=== PATIENT | female | born 1950 | race Caucasian/White ===

== ENCOUNTER 2025-03-02 10:50 | Emergency (ER) | payer MEDICARE, OTHER, SELFPAY ==
[2025-03-02 10:53] VITALS: BP 191/105
[2025-03-02 11:17] VITALS: BMI 47.0
[2025-03-02 11:36] LABS: % Basophils 0.8 % (0-2); % Eosinophils 1.5 % (0-6); % Immature Granulocytes 0.2 % (0-0.5); % Lymphocytes 21.8 % (20.5-51.1); % Monocytes 7.2 % (1.7-9.3); % Neutrophils 68.5 % (42.2-75.2); Absolute Basophils 0.1 10^3/uL (0-0.2); Absolute Eosinophils 0.1 10^3/uL (0-0.7); Absolute Lymphocytes 1.8 10^3/uL (1.2-3.4); Absolute Monocytes 0.6 10^3/uL (0.1-0.6); Absolute Neutrophils 5.8 10^3/uL (1.4-6.5); Hematocrit 45.5 % (37.0-47.0); Hemoglobin 15.3 g/dL (12.0-16.0); Mean Corp Hgb Conc. 33.6 g/dL (33.0-37.0); Mean Corpuscular Hgb 31.1 pg (27.0-31.0); Mean Corpuscular Volume 92.5 fL (81.0-99.0); Mean Platelet Volume 9.9 fL (7.4-10.4); Nucleated Red Blood Cells % 0 %; Platelet Count 289 10^3/uL (130-400); Red Blood Cell Count 4.92 10^6/uL (4.20-5.40); Red Cell Dist. Width 14.2 % (11.5-14.5); White Blood Cell Count 8.4 10^3/uL (4.8-10.8)
--- NOTE | 2025-03-02 11:47 | ED.GENMED ---
History of Present Illness
General
Chief Complaint: Jaw Pain
Source: patient
Exam Limitations: none
Time Seen by Provider: 03/02/25 11:28
History of Present Illness
History of Present Illness:
74-year-old female with history of epilepsy, hypertension and GERD presents with intermittent jaw pain and shoulder blade pain over the past several weeks. The pain is not pleuritic. She denies any shortness of breath. She denies chest pain. She
does admit to having several dental procedures in the past several months on the left side. No fever. She called her family doctor today and was referred here for evaluation. At the time of my exam she denies any pain.
Phy Exam
Physical Exam
Physical Exam:
General: well appearing female NAD
HEENT: NC/AT no bruits dentition appears well no swelling
Heart: Regular rate and rhythm lungs: Clear no wheeze
Neurologic exam alert and oriented no facial asymmetry
Vascular: 2+ radial pulses bilaterally
Course
Orders/Labs/Results
Orders:
Orders
03/02/25 10:52
EKG [Electrocardiogram (*1)] Urgent
Reason for Study: Other
Other Reason for Exam: jaw pain
EKG- Treatment ONCE
03/02/25 11:20
Complete Blood Count/With Diff Urgent
Comprehensive Metabolic Panel Urgent
Troponin I Urgent
03/02/25 11:41
CT Chest Angio W/wo Iv Contras Urgent
Comment:
Reason For Exam: jaw pain and shoulder blade pain
Abnormal Lab Results
03/02/25
11:20
MCH 31.1 H pg
(27.0-31.0)
BUN 23 H mg/dl
(7-17)
Glucose 117 H mg/dl
(70-99)
Alkaline Phosphatase 161 H U/L
(38-126)
03/02/25 11:20
03/02/25 11:20
Vital Signs
Initial and Last Documented VS:
Initial Vital Signs
Temp Pulse Resp BP Pulse Ox
98.0 F 83 20 191/105 99
03/02/25 10:53 03/02/25 10:53 03/02/25 10:53 03/02/25 10:53 03/02/25 10:53
Last Documented Vital Signs
Temp Pulse Resp BP Pulse Ox
98.0 F 65 18 161/67 99
03/02/25 10:53 03/02/25 13:23 03/02/25 13:23 03/02/25 13:23 03/02/25 13:23
MDM/Problems Addressed
Differential Diagnosis Includes:
Jaw and shoulder blade pain. Consider dissection ACS stress response versus muscular discomfort. No obvious facial swelling to suggest dental abscess
EKG shows sinus rhythm without ischemic changes. Troponin pending. Will order angio of the chest to evaluate for dissection
*Critical Care Note
Total Time (30-74mins, 75-104mins- exclusive of procedures): Not Applicable
Update Note
Update Note:
CT angio of the chest is negative for dissection. Cardiac workup negative. Patient pain-free here. Atypical discomfort in the jaw and shoulder blade. Stable for discharge with follow-up. No indication for admission
ED Attending Note
-
Portions of this chart may have been created with voice recognition software.� Occasional wrong word or��sound alike� substitutions may have occurred due to the inherent limitations of voice recognition software.
Discharge Plan
Departure
Patient Disposition: Home (Routine Discharge)
Date of Disposition: 03/02/25
Time of Disposition: 13:40
Patient with high blood pressure during this ER visit?: No
Discharge Problem:
Jaw pain
Instructions: Chest Pain PCP Follow Up
Referrals:
Luz Elena Alexis CRNP [Family Provider] -
Activity Restrictions/Additional Instructions:
As discussed your workup here was negative. Please return here for worsening symptoms otherwise follow-up with your doctor
Interventions
Interventions:
*Risk Screen - Suicide Last Done: 03/02/25 10:57
*General Assessment Last Done: 03/02/25 10:57
*Neglect/Abuse Screening Last Done: 03/02/25 11:31
*ED- Fall Risk Assessment Last Done: 03/02/25 11:17
*ED COVID-19 Vaccine History Last Done: 03/02/25 11:17
ED-EENT Assessment Last Done: 03/02/25 11:18
ED- Cardiac Assessment Last Done: 03/02/25 11:18
Discharge Date and Time
Print Language: NICARAGUAN
[2025-03-02 11:57] LABS: ALT (SGPT) 32 U/L (0-35); AST (SGOT) 26 U/L (14-36); Albumin 4.2 g/dl (3.5-5.0); Alkaline Phosphatase 161 U/L (38-126); Blood Urea Nitrogen 23 mg/dl (7-17); Carbon Dioxide 30 mmol/L (22-30); Chloride 102 mmol/L (98-107); Estimated Creatinine Clearance 90 ml/min; Glucose 117 mg/dl (70-99); Potassium 3.9 mmol/L (3.5-5.1); Sodium 141 mmol/L (135-145); Total Bilirubin 0.8 mg/dl (0.2-1.3); Total Protein 7.7 g/dl (6.3-8.2); eGFR > 60.00
[2025-03-02 12:01] LABS: Troponin I < 0.012 ng/ml
[2025-03-02 13:23] VITALS: BP 161/67
== END 2025-03-02 13:47 | disposition home or self-care (01) ==
LOC: EMR 10:50
PROVIDERS: EMERGENCY PHYSICIAN Emergency Medicine; FAMILY PHYSICIAN Nurse Practitioner Primary Care
DX: R68.84 Jaw pain (principal); I10 Essential (primary) hypertension
CPT/HCPCS: 99284; 71275; 80053; 84484; 85025; 93005; Q9967

== ENCOUNTER 2025-05-29 09:32 | Emergency (ER) | payer MEDICARE, OTHER, SELFPAY ==
[2025-05-29 09:36] VITALS: BP 186/87
--- NOTE | 2025-05-29 10:36 | CM ---
CM informed by pharmacist Sharmila pt needs pricing for Anticoagulation. I spoke to her pharmacy [facility] in [place] [phone]. Per pharmacist, [place] copay will be $84.07 a month. Informed pt and and her , they are agreeable. Pt given $10.00
co pay card, 30 day free card and information to contact supervisor [employer] for co pay assistance if needed. ED RN Heidi updated.
--- NOTE | 2025-05-29 11:04 | ED.GENMED ---
History of Present Illness
General
Chief Complaint: DVT/Possible Blood Clot
Source: patient
Exam Limitations: none
Time Seen by Provider: 05/29/25 10:00
Nursing documentation reviewed up to this point in time: agreed with
History of Present Illness
History of Present Illness:
74-year-old female history of epilepsy, on Dilantin presents with left greater than right lower extremity swelling did recently have a long car trip 13 hours, had an outpatient DVT study showed bilateral clots, she has no chest pain no shortness of
breath, no recent surgery, no history of DVT PE
Past History
Past History
ED Past Medical History: HTN and Seizures
Social History
Tobacco: Non-smoker
Alcohol: None
Drug: None
Personal:
Living: with family
Employment: Retired
Phy Exam
Physical Exam
Physical Exam:
Physical Exam
General: no apparent distress, not acutely ill
Neck: No jaundice
Heart: s1/s2 regular rate and rhythm, no murmur. equal radial pulses.
Lungs: no acute respiratory distress. clear bilaterally
Neuro: alert and oriented. no focal neurological deficits
Skin: no rash
Psychiatric: well kept. interactive and cooperative
Extremities: Left greater than right lower extremity swelling
Course
Orders/Labs/Results
Orders:
Orders
05/29/25 10:57
Apixaban [Eliquis] 10 mg PO NOW STA
Vital Signs
Initial and Last Documented VS:
Initial Vital Signs
Temp Pulse Resp BP Pulse Ox
97.7 F 85 18 186/87 95
05/29/25 09:36 05/29/25 09:36 05/29/25 09:36 05/29/25 09:36 05/29/25 09:36
Last Documented Vital Signs
Temp Pulse Resp BP Pulse Ox
97.7 F 85 18 186/87 95
05/29/25 09:36 05/29/25 09:36 05/29/25 09:36 05/29/25 09:36 05/29/25 11:05
MDM/Problems Addressed
Differential Diagnosis Includes:
DVT venous stasis cellulitis no chest pain or shortness of breath
MDM/Problems Addressed:
DVT
*Radiology
Radiology exam reviewed: radiology read reviewed
*Pulse Oximetry
SaO2: 95
Oxygen Mode of Delivery: Room air
Patient hypoxic: no
*Critical Care Note
Total Time (30-74mins, 75-104mins- exclusive of procedures): Not Applicable
Update Note
Update Note:
Update patient with bilateral DVT, sounds like it was provoked recent car trip, will start on anticoagulation, PCP follow-up instructions for return to the ER if falls bleeding chest pain shortness of breath
ED Attending Note
-
Portions of this chart may have been created with voice recognition software.� Occasional wrong word or��sound alike� substitutions may have occurred due to the inherent limitations of voice recognition software.
Discharge Plan
Departure
Patient Disposition: Home (Routine Discharge)
Date of Disposition: 05/29/25
Time of Disposition: 10:58
Patient with high blood pressure during this ER visit?: No
Condition: Good
Covid-19: Not Applicable
Discharge Problem:
DVT (deep venous thrombosis)
Instructions: Deep Vein Thrombosis (Blood Clots in the Legs) (DC)
Prescriptions:
New
Eliquis DVT-PE Treat 30D Start 5 mg (74 tabs) tablets,dose pack
See Rx Instructions .ROUTE .COMPLEX Qty: 74 0RF
Rx Instructions:
orally per package directions
Referrals:
Luz Elena Alexis CRNP [Family Provider, General] - Next open appointment
Activity Restrictions/Additional Instructions:
Eliquis 10 mg twice a day for a week then 5 mg twice a day
Return to the ER for chest pain, shortness of breath, any bleeding, any trauma
Interventions
Interventions:
*Risk Screen - Suicide Last Done: 05/29/25 09:36
*General Assessment Last Done: 05/29/25 09:36
*Neglect/Abuse Screening Last Done: 05/29/25 09:36
Discharge Date and Time
Print Language: PALEST[place]IAN
[2025-05-29 11:10] VITALS: BP 115/81
[2025-05-29] MEDS: ELIQUIS 10 MG PO (11:16)
== END 2025-05-29 11:48 | disposition home or self-care (01) ==
LOC: EMR 09:32
PROVIDERS: EMERGENCY PHYSICIAN Emergency Medicine; FAMILY PHYSICIAN Nurse Practitioner Primary Care
DX: M79.89 Other specified soft tissue disorders (principal); I82.403 Acute embolism and thrombosis of unspecified deep veins of lower extremity, bilateral; I10 Essential (primary) hypertension; G40.909 Epilepsy, unspecified, not intractable, without status epilepticus; F41.9 Anxiety disorder, unspecified; F32.A Depression, unspecified; Z88.8 Allergy status to other drugs, medicaments and biological substances
CPT/HCPCS: 99283; 93970